=== PATIENT | female | born 1955 | race African-American/Black ===

== ENCOUNTER 2016-11-21 23:42 | Emergency (ER) | payer BC ==
[~2016-11-21 23:42] MED LIST: LISINOPRIL-HCTZ1 T15 PO
== END 2016-11-22 03:36 | disposition home or self-care (01) ==
LOC: CED 23:42
DX: L50.0 Allergic urticaria (principal); I10 Essential (primary) hypertension; E11.9 Type 2 diabetes mellitus without complications; Z86.73 Personal history of transient ischemic attack (TIA), and cerebral infarction without residual deficits; Z79.899 Other long term (current) drug therapy
CPT/HCPCS: 99282